=== PATIENT | male | born 1960 | race Caucasian/White ===

== ENCOUNTER 2018-08-19 21:04 | Inpatient (IN) ==
[2018-08-19] MEDS ORDERED: Lidocaine 1%/Epinephrine 1:100,000 Inj 50 ML Vial INFILTRATN ONE (21:28)
--- NOTE | 2018-08-19 21:37 | ED ---
HPI General Chief complaint: Trauma Stated complaint: Medical, TA Transfer NSB Time Seen by Provider: 08/19/18 21:22 History of Present Illness HPI narrative: This is a 57-year-old male with history of polymyalgia rheumatica , hypothyroidism, who was transferred from [facility] for evaluation by the trauma service. The patient reports that he had a skateboarding accident this afternoon. He was evaluated and found to have multiple right-sided rib fractures consistent with flail chest, small right hemopneumothorax, nondisplaced fracture of the body of the right scapula CT cervical spine revealed no acute osseous abnormality in the cervical spine. CT the brain was negative. The patient is complaining of right-sided rib cage pain which is sharp and worse with movement. He endorses slight dyspnea. He has a laceration on the left hand which is minimally painful. He is denying any headache, neck pain, numbness or tingling or weakness in extremities, abdominal pain, nausea or vomiting. He has no other complaints at this time. Related Data Home Medications Medication Instructions Recorded Confirmed levothyroxine 125 mcg PO DAILY 08/19/18 08/19/18 prednisone 10 mg PO DAILY 08/19/18 08/19/18 Allergies Allergy/AdvReac Type Severity Reaction Status Date / Time No Known Allergies Allergy Verified 08/19/18 21:08 Review of Systems ROS: all other systems reviewed are negative PMFSH Social History Social History Substance History: No History of Abuse Second Hand Smoke Exposure: No Smoking Status: Never smoker How Often Do You Have a Drink Containing Alcohol: 4 or more times a week Recent Travel in [facility] within the Last 8 Weeks: No Recent Out of Country Travel within the Last 8 Weeks: No Immunization History Tetanus Immunization: <5 Years Exam Narrative Exam Narrative: GENERAL: Well-developed well-nourished male in no acute distress SKIN: Warm and dry. There is a 2 cm laceration to the thenar eminence of the left hand. Sand is noted around the wound. There is an abrasion to the right knee. HEAD: Atraumatic. Normocephalic. EYES: Pupils equal and round. No scleral icterus. No injection or drainage. ENT: No nasal bleeding or discharge. Mucous membranes pink and moist. NECK: Trachea midline. No JVD. CARDIOVASCULAR: Regular rate and rhythm. No murmur appreciated. RESPIRATORY: No accessory muscle use. Clear to auscultation. Breath sounds equal bilaterally. GASTROINTESTINAL: Abdomen soft, non-tender, nondistended. Hepatic and splenic margins not palpable. MUSCULOSKELETAL: Skin as noted above. There is tenderness to palpation of the posterior right rib cage. There is no tenderness to palpation of the cervical midline spine. NEUROLOGICAL: Awake and alert. No obvious cranial nerve deficits. Motor grossly within normal limits. Normal speech. Procedures Laceration Laceration 1: Site: hand Side (If applicable): left Size (cm): 2 Description: linear Depth: simple, single layer Anesthetic used: lidocaine 1% and with epi Anesthesia technique:: local infiltration Amount (mL): 3 Pre-repair:: wound explored and irrigated extensively Skin layer closed with: ethilon Size (cm): 4-0 Number of sutures:: 4 Technique:: simple, interrupted Course Initial Documented Vital Signs Temperature 99.4 F 08/19/18 21:08 Pulse Rate 93 H 08/19/18 21:08 Respiratory Rate 14 08/19/18 21:08 Blood Pressure 124/78 08/19/18 21:08 Pulse Oximetry 92 L 08/19/18 21:08 Last Documented Vital Signs Temperature 97.6 F 08/20/18 08:00 Pulse Rate 59 L 08/20/18 08:00 Respiratory Rate 19 08/20/18 08:00 Blood Pressure 116/66 08/20/18 08:00 Pulse Oximetry 98 08/20/18 08:00 Medical Decision Making XIOMARA Attestation XIOMARA supervised visit: Yes Attestation: I, Dr. Traylor, have reviewed the advance practice practitioner's documentation and am in agreement, met with the patient face to face, made the diagnosis, and the medical decision making was done by me. *My assessment and Findings: This patient was sent to us as a trauma transfer from [facility]. His major injury was chest trauma with multiple rib fractures and a small hemo/pneumothorax. His oxygen saturations were a bit low on arrival. The PA informed me immediately of the patient's presence in case a chest tube was needed emergently. On my evaluation, the patient was not having any respiratory distress. The initial plan was to do an upright chest x-ray to further evaluate the hemopneumothorax. However, Dr. Mancera requested a CT of his abdomen and pelvis. A CT of his chest was added for further evaluation of the hemopneumothorax. Dr. Mancera came to the emergency department shortly after patient's arrival to evaluate the patient himself. Please see Sean Valerio PA-C's note for a more detailed H&P, final diagnosis and disposition MDM Narrative Medical decision making narrative: The patient was placed on ECG monitoring pulse oximetry. An IV was established, lab work was obtained and sent, x-ray of the left hand and chest were obtained. The laceration on the left hand was repaired, he verbally consented. I discussed with Dr. Andersen the accepting trauma surgeon who would like CT imaging of the thorax and abdomen and pelvis. Medical Screen Exam Complete: Yes Emergency Medical Condition: Yes Differential Diagnosis Differential Diagnosis: Rib fracture versus pneumothorax versus hemothorax versus scapular fracture Lab Data Result diagrams: 08/20/18 05:46 08/20/18 05:46 Lab Results 08/19/18 08/19/18 08/19/18 Range/Units 21:33 21:33 21:33 WBC 11.3 H (4.0-11.0) th/mm3 RBC 4.55 (4.50-5.90) mil/mm3 Hgb 13.6 (13.0-17.0) gm/dL Hct 39.5 (39.0-51.0) % MCV 86.9 (80.0-100.0) fL MCH 29.9 (27.0-34.0) pg MCHC 34.4 (32.0-36.0) % RDW 13.3 (11.6-17.2) % Plt Count 261 (150-450) th/mm3 MPV 7.4 (7.0-11.0) fL Neut % (Auto) 75.3 H (16.0-70.0) % Lymph % (Auto) 13.7 (9.0-44.0) % Walker % (Auto) 10.0 H (0.0-8.0) % Eos % (Auto) 0.8 (0.0-4.0) % Baso % (Auto) 0.2 (0.0-2.0) % Neut # (Auto) 8.5 H (1.8-7.7) th/mm3 Lymph # (Auto) 1.5 (1.0-4.8) th/mm3 Walker # (Auto) 1.1 H (0.0-0.9) th/mm3 Eos # (Auto) 0.1 (0.0-0.4) th/mm3 Baso # (Auto) 0.0 (0.0-0.2) th/mm3 WBC Differential . Differential Comment Auto diff final PT 10.2 (9.8-11.6) sec INR 1.0 Ratio APTT 27.5 (23.4-31.7) sec Sodium 139 (136-145) meq/L Potassium 3.7 (3.5-5.1) meq/L Chloride 105 (98-107) meq/L Carbon Dioxide 27.9 (21.0-32.0) meq/L Anion Gap 6 (5-15) meq/L BUN 17 (7-18) mg/dL Creatinine 1.07 (0.60-1.30) mg/dL Estimated GFR 71 L (>89) mL/min Random Glucose 112 H (74-106) mg/dL Calcium 8.0 L (8.5-10.1) mg/dL Nasal Screen MRSA (PCR) (Negative) Blood Type Blood Type Recheck Antibody Screen 08/19/18 08/19/18 08/20/18 Range/Units 22:10 23:51 05:46 WBC 9.4 (4.0-11.0) th/mm3 RBC 4.23 L (4.50-5.90) mil/mm3 Hgb 12.7 L (13.0-17.0) gm/dL Hct 37.9 L (39.0-51.0) % MCV 89.6 (80.0-100.0) fL MCH 30.1 (27.0-34.0) pg MCHC 33.6 (32.0-36.0) % RDW 13.6 (11.6-17.2) % Plt Count 237 (150-450) th/mm3 MPV 7.4 (7.0-11.0) fL Neut % (Auto) 66.8 (16.0-70.0) % Lymph % (Auto) 18.9 (9.0-44.0) % Walker % (Auto) 11.9 H (0.0-8.0) % Eos % (Auto) 1.6 (0.0-4.0) % Baso % (Auto) 0.8 (0.0-2.0) % Neut # (Auto) 6.3 (1.8-7.7) th/mm3 Lymph # (Auto) 1.8 (1.0-4.8) th/mm3 Walker # (Auto) 1.1 H (0.0-0.9) th/mm3 Eos # (Auto) 0.2 (0.0-0.4) th/mm3 Baso # (Auto) 0.1 (0.0-0.2) th/mm3 WBC Differential . Differential Comment Auto diff final PT (9.8-11.6) sec INR Ratio APTT (23.4-31.7) sec Sodium (136-145) meq/L Potassium (3.5-5.1) meq/L Chloride (98-107) meq/L Carbon Dioxide (21.0-32.0) meq/L Anion Gap (5-15) meq/L BUN (7-18) mg/dL Creatinine (0.60-1.30) mg/dL Estimated GFR (>89) mL/min Random Glucose (74-106) mg/dL Calcium (8.5-10.1) mg/dL Nasal Screen MRSA (PCR) Not detected (Negative) Blood Type O Positive Blood Type Recheck Required Antibody Screen Negative 08/20/18 Range/Units 05:46 WBC (4.0-11.0) th/mm3 RBC (4.50-5.90) mil/mm3 Hgb (13.0-17.0) gm/dL Hct (39.0-51.0) % MCV (80.0-100.0) fL MCH (27.0-34.0) pg MCHC (32.0-36.0) % RDW (11.6-17.2) % Plt Count (150-450) th/mm3 MPV (7.0-11.0) fL Neut % (Auto) (16.0-70.0) % Lymph % (Auto) (9.0-44.0) % Walker % (Auto) (0.0-8.0) % Eos % (Auto) (0.0-4.0) % Baso % (Auto) (0.0-2.0) % Neut # (Auto) (1.8-7.7) th/mm3 Lymph # (Auto) (1.0-4.8) th/mm3 Walker # (Auto) (0.0-0.9) th/mm3 Eos # (Auto) (0.0-0.4) th/mm3 Baso # (Auto) (0.0-0.2) th/mm3 WBC Differential Differential Comment PT (9.8-11.6) sec INR Ratio APTT (23.4-31.7) sec Sodium 140 (136-145) meq/L Potassium 4.5 D (3.5-5.1) meq/L Chloride 106 (98-107) meq/L Carbon Dioxide 27.1 (21.0-32.0) meq/L Anion Gap 7 (5-15) meq/L BUN 18 (7-18) mg/dL Creatinine 0.93 (0.60-1.30) mg/dL Estimated GFR 84 L (>89) mL/min Random Glucose 104 (74-106) mg/dL Calcium 7.6 L (8.5-10.1) mg/dL Nasal Screen MRSA (PCR) (Negative) Blood Type Blood Type Recheck Antibody Screen Imaging Data Radiologist's impression: Chest X-Ray 08/19/18 21:19 CONCLUSION: 1. Multiple acute right-sided rib fractures. 2. Questionable small right apical pneumothorax. 3. Scattered parenchymal opacities likely relating to atelectasis. Hand X-Ray 08/19/18 21:19 CONCLUSION: Negative examination Abdomen/Pelvis CT 08/19/18 21:31 CONCLUSION: 1. No evidence of acute visceral injury. 2. Mild hepatic steatosis. 3. Visualization of the known right rib fractures, small pneumothorax, consolidation in the right lower lobe and small effusion. Please see chest CT report for further details. Chest CT 08/19/18 21:31 CONCLUSION: 1. Small right anterior pneumothorax. 2. Consolidation in the right posterior lung base and small right effusion. 3. Multiple right rib fractures involving the lateral right fourth through eighth ribs and posterior third through sixth ribs. Chest X-Ray 08/20/18 22:31 CONCLUSION: No significant interval change. There is no pneumothorax Discharge Plan Discharge Disposition Patient Disposition: ED Admit(ED Internal Use Only) Discharge Condition Condition: Stable Discharge Order Discharge Orders: Orthopedic Clear for Discharge (Routine); Ordered 08/20/18 Ordered By: Morgan Merritt ED Use Only Admit Order (Routine); Ordered 08/19/18 Ordered By: Sean Valerio Discharge Details Diagnosis: Multiple rib fractures, Fracture closed, scapula, Hemopneumothorax Physicians Team ED Provider: Jill Traylor ED Midlevel Provider: Sean Valerio Primary Care Provider: UNKNOWN, Attending Provider: Kenya Mancera Other Providers: Denis Clements ; Dick Millard ; Christ Alvarado ; [employer] ; Brett Woodson ; Luz Marina Rodriguez ; Omero Rivera ; Kenya Mancera ; Gautam Waters ; Rocky Culver Status ED Status: Left Department Discharge Information Discharge Date/Time: 08/19/18 23:35
[2018-08-19] MEDS ORDERED: Sod Chloride 0.9% Inj 1,000 ML IV.SIG SCH (21:45)
--- NOTE | 2018-08-19 21:47 | XR ---
EXAM DATE: 08/19/2018 9:42 PM EST AGE/SEX: 57 years / Male INDICATIONS: Left hand, 1st MCPJ palm laceration. CLINICAL DATA: This is the patient's initial encounter. Patient reports that signs and symptoms have been present for 1 day and indicates a pain score of 10/10. MEDICAL/SURGICAL HISTORY: None. None. COMPARISON: No prior exams available for comparison. FINDINGS: Bony structures are intact and in normal alignment. Osseous density is normal. Soft tissues are unre markable. No radiopaque foreign bodies seen. CONCLUSION: Negative examination Electronically signed by: Abdon Holm MD Board Certified Radiologist 08/19/2018 9:45 PM EST
--- NOTE | 2018-08-19 21:48 | XR ---
EXAM DATE: 08/19/2018 9:41 PM EST AGE/SEX: 57 years / Male INDICATIONS: Pneumothorax after falling off a skateboard. CLINICAL DATA: This is the patient's initial encounter. Patient reports that signs and symptoms have been present for 1 day and indicates a pain score of 10/10. MEDICAL/SURGICAL HISTORY: None. None. COMPARISON: No prior exams available for comparison. FINDINGS: A single AP view of the chest demonstrates scattered parenchymal opacities throughout both lungs. No effusions. Heart is normal in size. Multiple acute right-sided rib fractures seen. A questionable sma ll apical pneumothorax. No effusion. The heart is normal in size. CONCLUSION: 1. Multiple acute right-sided rib fractures. 2. Questionable small right apical pneumothorax. 3. Scattered parenchymal opacities likely relating to atelectasis. Electronically signed by: Abdon Holm MD Board Certified Radiologist 08/19/2018 9:47 PM EST
[2018-08-19 21:54] LABS: Baso % (Auto) 0.2 % (0.0-2.0); Eos # (Auto) 0.1 th/mm3 (0.0-0.4); Eos % (Auto) 0.8 % (0.0-4.0); Hematocrit 39.5 % (39.0-51.0); Hemoglobin 13.6 gm/dL (13.0-17.0); Lymph # (Auto) 1.5 th/mm3 (1.0-4.8); Lymph % (Auto) 13.7 % (9.0-44.0); Mean Corpuscular HGB Conc 34.4 % (32.0-36.0); Mean Corpuscular Hemoglobin 29.9 pg (27.0-34.0); Mean Corpuscular Volume 86.9 fL (80.0-100.0); Mean Platelet Volume 7.4 fL (7.0-11.0); Mono # (Auto) 1.1 th/mm3 (0.0-0.9); Neut # (Auto) 8.5 th/mm3 (1.8-7.7); Neut % (Auto) 75.3 % (16.0-70.0); Platelet Count 261 th/mm3 (150-450); Red Blood Count 4.55 mil/mm3 (4.50-5.90); Red Cell Distribution Width 13.3 % (11.6-17.2); White Blood Count 11.3 th/mm3 (4.0-11.0)
[2018-08-19 22:11] LABS: Activated Partial Thrombo Time 27.5 sec (23.4-31.7); Prothrombin Time 10.2 sec (9.8-11.6)
[2018-08-19 22:13] LABS: Carbon Dioxide 27.9 meq/L (21.0-32.0); Potassium 3.7 meq/L (3.5-5.1)
[2018-08-19] MEDS ORDERED: Naloxone Inj 0.4 MG/ML Vial IV.PUSH PRN (22:34)
[2018-08-19] MEDS: HYDROmorphone PF Inj 2 MG/ML Vial IV.PUSH PRN (22:38)
[2018-08-19] MEDS: Ketorolac Inj 30 MG/ML (IVP) Vial IV.PUSH SCH (22:39)
--- NOTE | 2018-08-19 22:47 | P.HPCC ---
History of Present Illness Primary Care Physician: UNKNOWN History of Present Illness: 57 y.o male fell from skateboard today.Transfer transfer from outside institution. Patient had a CT scan of the head C-spine which were negative. CT scan of the chest shows multiple right-sided rib fractures with a small hemopneumothorax. He is hemodynamically normal complaints of right-sided chest pain or right-sided shoulder pain, he is on 4 L oxygen satting in the mid in the mid 90s. He had a small open wound of the right hand which was sutured by the ER physician assistant credit manager. 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 - Medical History Medical History: Medical History (Last Updated 08/19/18 @ 21:32 by Dayanara Pearson) Hypothyroidism Polymyalgia rheumatica - Surgical History Surgical History: Surgical History (Last Updated 08/19/18 @ 21:15 by Dayanara Pearson) History of tonsillectomy Hx of adenoidectomy - Tobacco History Second Hand Smoke Exposure: No Tobacco Use In Past 30 Days: No Smoking Status: Never smoker - Alcohol History How Often Do You Have a Drink Containing Alcohol: 4 or more times a week - Substance Use History Substance History: No History of Abuse - Travel History Recent Travel in the [place] Within the Last 8 Weeks: No Recent Travel Out of the Country Within the Last 8 Weeks: No - Immunization History Tetanus Immunization: <5 Years Tetanus Immunization Year if Known: 2019 Medications and Allergies Active Medications: Active Medications Chlorhexidine Gluconate (Chlorhexidine 2% Cloth) 3 pack TOPICAL DAILY@0400 ANT Stop: 08/25/18 03:59 Chlorhexidine Gluconate (Chlorhexidine 2% Cloth) 3 pack TOPICAL DAILY@0400 PRN PRN Reason: Extra cloth needed Stop: 08/25/18 03:59 Hydromorphone HCl (Dilaudid Pf Inj) 1 mg IV.PUSH Q4H PRN PRN Reason: BREAKTHROUGH PAIN Last Admin: 08/19/18 22:38 Dose: 1 mg Sodium Chloride (Ns Inj) 1,000 mls @ 1,000 mls/hr IV.SIG BOLUS ANT Stop: 08/19/18 22:44 Last Admin: 08/19/18 22:02 Dose: 1,000 mls/hr Lactated Ringer's (Lr 1000 Ml Inj) 1,000 mls @ 100 mls/hr IV.CONT .Q10H ANT Acetaminophen (Ofirmev Inj) 1,000 mg in 100 mls @ 400 mls/hr IV.SIG Q6H ANT Stop: 08/20/18 16:50 Hydromorphone/Sodium Chloride (Dilaudid Social Worker Delinquency Prevention Inj) 6 mg in 30 mls @ 0 mls/hr CUSTOM STOCK MAKER UNSCH PRN PRN Reason: prn pain Ketorolac Tromethamine (Toradol Inj) 30 mg IV.PUSH Q6H ANT Stop: 08/21/18 22:30 Last Admin: 08/19/18 22:39 Dose: 30 mg Methocarbamol (Robaxin) 750 mg PO Q8HR ANT Naloxone HCl (Narcan Inj) 0.4 mg IV.PUSH PRN PRN PRN Reason: SEE LABEL COMMENTS Ondansetron HCl (Zofran Inj) 4 mg IV.PUSH Q6H PRN PRN Reason: NAUSEA OR VOMITING Prednisone (Deltasone) 10 mg PO DAILY ANT Sodium Chloride (Ns Flush) 2 ml IV.FLUSH UNSCH PRN PRN Reason: FLUSH AFTER USING IV ACCESS Allergies Allergy/AdvReac Type Severity Reaction Status Date / Time No Known Allergies Allergy Verified 08/19/18 21:08 Home Medications Medication Instructions Recorded Confirmed Type levothyroxine 125 mcg PO DAILY 08/19/18 08/19/18 History prednisone 10 mg PO DAILY 08/19/18 08/19/18 History Results - Labs CBC & Chem 7: 08/19/18 21:33 08/19/18 21:33 Labs: Short CBC 08/19/18 Range/Units 21:33 WBC 11.3 H (4.0-11.0) th/mm3 Hgb 13.6 (13.0-17.0) gm/dL Hct 39.5 (39.0-51.0) % Plt Count 261 (150-450) th/mm3 BMP 08/19/18 21:33 Sodium 139 Potassium 3.7 Chloride 105 Carbon Dioxide 27.9 BUN 17 Creatinine 1.07 Calcium 8.0 L - Imaging Impressions Chest X-Ray 08/19/18 21:19 CONCLUSION: 1. Multiple acute right-sided rib fractures. 2. Questionable small right apical pneumothorax. 3. Scattered parenchymal opacities likely relating to atelectasis. Hand X-Ray 08/19/18 21:19 CONCLUSION: Negative examination Exam Vital signs: Vital Signs 08/19/18 21:08 08/19/18 22:00 Temperature 99.4 F Pulse Rate 93 H 97 H Respiratory Rate 14 18 Blood Pressure 124/78 124/78 Pulse Oximetry 92 L 95 Intake & Output 08/19/18 08/19/18 08/20/18 06:59 18:59 06:59 Weight 90.718 kg - Constitutional no acute distress, average body habitus, cooperative - Routine HEENT Exam Head: Present: normocephalic Eye: Present: EOMI, PERRL ENT: Present: mucous membranes dry, oropharynx clear - Routine Neck Exam Present: supple, full ROM, trachea midline - Routine Respiratory Exam Present: CTA bilaterally - Routine Cardiovascular Exam Present: RRR - Routine Abdominal Exam Present: soft - Routine Extremities Exam Present: full ROM, pulses intact, normal capillary refill - Routine Neurological Exam Present: alert, oriented X3, moving all extremities Caprini VTE Risk Assessment Caprini VTE Risk Assessment: Moderate/High Risk (score >= 2) Caprini Risk Assessment Model: Point Value = 1 Point Value = 2 Point Value = 3 Point Value = 5 Age 41-60 Minor surgery BMI > 25 kg/m2 Swollen legs Varicose veins or History of unexplained or recurrent spontaneous Oral contraceptives or hormone replacement Sepsis (< 1 month) Serious lung disease, including pneumonia (< 1 month) Abnormal pulmonary function Acute myocardial infarction Congestive heart failure (< 1 month) History of inflammatory bowel disease Medical patient at bed rest Age 61-74 Arthroscopic surgery Major open surgery (> 45 min) Laparoscopic surgery (> 45 min) Malignancy Confined to bed (> 72 hours) Immobilizing plaster cast Central venous access Age >= 75 History of VTE Family history of VTE Factor V Leiden Prothrombin [id number] Lupus anticoagulant Anticardiolipin antibodies Elevated serum homocysteine Heparin-induced thrombocytopenia Other congenital or acquired thrombophilia Stroke (< 1 month) Elective arthroplasty Hip, pelvis, or leg fracture Acute spinal cord injury (< 1 month) Prophylaxis Regimen: Total Risk Factor Score Risk Level Prophylaxis Regimen 0-1 Low Early ambulation 2 Moderate Order ONE of the following: *Sequential Compression Device (SCD) *Heparin 5000 units SQ BID 3-4 Higher Order ONE of the following medications: *Heparin 5000 units SQ TID *Enoxaparin/Lovenox 40 mg SQ daily (WT < 150 kg, CrCl > 30 mL/min) *Enoxaparin/Lovenox 30 mg SQ daily (WT < 150 kg, CrCl > 10-29 mL/min) *Enoxaparin/Lovenox 30 mg SQ BID (WT < 150 kg, CrCl > 30 mL/min) AND/OR *Sequential Compression Device (SCD) 5 or more Highest Order ONE of the following medications: *Heparin 5000 units SQ TID (Preferred with Epidurals) *Enoxaparin/Lovenox 40 mg SQ daily (WT < 150 kg, CrCl > 30 mL/min) *Enoxaparin/Lovenox 30 mg SQ daily (WT < 150 kg, CrCl > 10-29 mL/min) *Enoxaparin/Lovenox 30 mg SQ BID (WT < 150 kg, CrCl > 30 mL/min) AND *Sequential Compression Device (SCD) Assessment and Plan - Assessment and Plan Plan: Chest trauma right side with multiple rib fractures Scapula fracture Ad[facility] to [facility] repeat CT scan of the chest -I will order a CT scan of the abdomen and pelvis which has not been performed in the transferring institution Pain control with CUSTOM STOCK MAKER I reviewed patient's CT scan from transferring institution his pneumothorax is fairly small-this is been increasing size on the repeat CT in [place] I will proceed with the chest tube thoracostomy Repeat chest x-ray in the morning
--- NOTE | 2018-08-19 23:15 | CT ---
EXAM DATE: 08/19/2018 11:03 PM EST AGE/SEX: 57 years / Male INDICATIONS: Trauma. Skateboard accident. Patient has severe right-sided chest pain with multiple kn own fractures and abnormal chest plain film examination demonstrating questionable small right apical pneumothorax. CLINICAL DATA: This is the patient's initial encounter. Patient reports that signs and symptoms have been present for 1 day and indicates a pain score of 10/10. MEDICAL/SURGICAL HISTORY: None. None. RADIATION DOSE: 6.54 CTDI (mGy) ; Combined studies COMPARISON: [facility], CHEST 1V SINGLE AP, 08/19/2018. . TECHNIQUE: Multiple contiguous axial images were obtained through the chest during bolus infusion of 95 ml Omnipaque 350 (iohexol) nonionic water-soluble contrast as a cumulative dose for multiple exa ms. Images were obtained in suspended respiration using multiple row detector helical technique. U sing automated exposure control and adjustment of the mA and/or kV according to patient size, radiati on dose was kept as low as reasonably achievable to obtain optimal diagnostic quality images. DICOM format image data is available electronically for review and comparison. FINDINGS: Lungs: There is a small right anterior pneumothorax extending across the lung base measuring up to a pproximately 1 cm in greatest AP diameter. There is consolidation in the right lower lobe with air br onchograms. There is mild atelectasis or consolidation posterior left lung. Mediastinum: There is good visualization of the great vessels of the middle mediastinum. No evidenc e of mediastinal or hilar adenopathy/mass. Pleurae: There is a small right pleural effusion. Axillae: Unremarkable. Bony Structures: There are fractures of the right lateral fourth through eighth ribs and posterior t hird through sixth ribs. Miscellaneous: The examination was extended to include the upper abdomen, and both adrenal glands ar e normal in size and configuration. CONCLUSION: 1. Small right anterior pneumothorax. 2. Consolidation in the right posterior lung base and small right effusion. 3. Multiple right rib fractures involving the lateral right fourth through eighth ribs and posterior third through sixth ribs. Electronically signed by: Alonzo Alvarez MD Board Certified Radiologist 08/19/2018 11:13 PM EST
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
[2018-08-20] MEDS: Methocarbamol 500 MG Tablet PO SCH ×4 (00:16→21:07)
[2018-08-20] MEDS: HYDROmorphone PCA Inj 6 MG/30 ML PCA.VIAL PCA PRN ×2 (00:31→18:47)
[2018-08-20] MEDS ORDERED: Chlorhexidine Gluconate 2% 1 Pack (2 Cloths) TOPICAL PRN (04:00)
[2018-08-20] MEDS: Chlorhexidine Gluconate 2% 1 Pack (2 Cloths) TOPICAL SCH (04:47)
[2018-08-20] MEDS: Ketorolac Inj 30 MG/ML (IVP) Vial IV.PUSH SCH ×4 (04:47→22:48)
[2018-08-20 06:12] LABS: Baso # (Auto) 0.1 th/mm3 (0.0-0.2); Baso % (Auto) 0.8 % (0.0-2.0); Eos # (Auto) 0.2 th/mm3 (0.0-0.4); Eos % (Auto) 1.6 % (0.0-4.0); Hematocrit 37.9 % (39.0-51.0); Hemoglobin 12.7 gm/dL (13.0-17.0); Lymph # (Auto) 1.8 th/mm3 (1.0-4.8); Lymph % (Auto) 18.9 % (9.0-44.0); Mean Corpuscular HGB Conc 33.6 % (32.0-36.0); Mean Corpuscular Hemoglobin 30.1 pg (27.0-34.0); Mean Corpuscular Volume 89.6 fL (80.0-100.0); Mean Platelet Volume 7.4 fL (7.0-11.0); Mono # (Auto) 1.1 th/mm3 (0.0-0.9); Mono % (Auto) 11.9 % (0.0-8.0); Neut # (Auto) 6.3 th/mm3 (1.8-7.7); Neut % (Auto) 66.8 % (16.0-70.0); Platelet Count 237 th/mm3 (150-450); Red Blood Count 4.23 mil/mm3 (4.50-5.90); Red Cell Distribution Width 13.6 % (11.6-17.2); White Blood Count 9.4 th/mm3 (4.0-11.0)
[2018-08-20 06:34] LABS: Calcium 7.6 mg/dL (8.5-10.1); Carbon Dioxide 27.1 meq/L (21.0-32.0); Potassium 4.5 meq/L (3.5-5.1)
--- NOTE | 2018-08-20 07:05 | XR ---
EXAM DATE: 08/20/2018 6:50 AM EST AGE/SEX: 57 years / Male INDICATIONS: Follow up trauma. Pain right chest and ribs. CLINICAL DATA: This is the patient's subsequent encounter. Patient reports that signs and symptoms h ave been present for 1 day and indicates a pain score of 9/10. MEDICAL/SURGICAL HISTORY: . right apical pneumothorax, multiple right rib fractures None. COMPARISON: [facility] – [place], CHEST 1V SINGLE AP, 08/19/2018. . FINDINGS: A single AP view of the chest demonstrates the lungs to be symmetrically aerated without evidence of mass, infiltrate or effusion. The cardiomediastinal contours are unremarkable. Fractures of the righ t upper ribs are again noted. I do not see a right apical pneumothorax is more CONCLUSION: No significant interval change. There is no pneumothorax Electronically signed by: Thomas Ro MD Board Certified Radiologist 08/20/2018 7:04 AM EST
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
[2018-08-20] MEDS: predniSONE 10 MG Tablet PO SCH (09:28)
[2018-08-20] MEDS: Famotidine 20 MG Tablet PO SCH ×2 (09:28→21:08)
[2018-08-20] MEDS: Senna/Docusate Sodium 8.6/50 MG Tablet PO SCH ×2 (09:30→21:08)
[2018-08-20] MEDS: Lidocaine 5% Patch T-DERMAL SCH (09:33)
[2018-08-20] MEDS: Enoxaparin Inj 40 MG/0.4 ML Syringe SQ SCH (11:43)
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
[2018-08-20] MEDS: HYDROmorphone PF Inj 2 MG/ML Vial IV.PUSH PRN (18:37)
[2018-08-21] MEDS: Chlorhexidine Gluconate 2% 1 Pack (2 Cloths) TOPICAL SCH (05:10)
[2018-08-21] MEDS: Levothyroxine 125 MCG Tablet PO SCH (05:11)
[2018-08-21] MEDS: Ketorolac Inj 30 MG/ML (IVP) Vial IV.PUSH SCH ×4 (05:11→21:30)
[2018-08-21 05:26] LABS: Baso % (Auto) 0.5 % (0.0-2.0); Eos # (Auto) 0.4 th/mm3 (0.0-0.4); Eos % (Auto) 4.2 % (0.0-4.0); Hematocrit 35.2 % (39.0-51.0); Hemoglobin 12.1 gm/dL (13.0-17.0); Lymph % (Auto) 24.4 % (9.0-44.0); Mean Corpuscular HGB Conc 34.5 % (32.0-36.0); Mean Corpuscular Hemoglobin 30.8 pg (27.0-34.0); Mean Corpuscular Volume 89.3 fL (80.0-100.0); Mean Platelet Volume 7.7 fL (7.0-11.0); Mono # (Auto) 0.9 th/mm3 (0.0-0.9); Mono % (Auto) 10.9 % (0.0-8.0); Platelet Count 213 th/mm3 (150-450); Red Blood Count 3.95 mil/mm3 (4.50-5.90); Red Cell Distribution Width 13.4 % (11.6-17.2); White Blood Count 8.4 th/mm3 (4.0-11.0)
[2018-08-21 05:46] LABS: Albumin 3.3 g/dL (3.4-5.0); Anion Gap 6 meq/L (5-15); Aspartate Aminotransferase 53 U/L (15-37); Blood Urea Nitrogen 17 mg/dL (7-18); Calcium 7.7 mg/dL (8.5-10.1); Carbon Dioxide 29.1 meq/L (21.0-32.0); Chloride 103 meq/L (98-107); Glomerular Filtration Rate 83 mL/min (>89); Glucose,Random 111 mg/dL (74-106); Potassium 4.1 meq/L (3.5-5.1); Sodium 138 meq/L (136-145)
[2018-08-21 05:48] LABS: Alanine Aminotransferase 65 U/L (12-78)
[2018-08-21 05:49] LABS: Alkaline Phosphatase 56 U/L (45-117); Total Protein 6.4 g/dL (6.4-8.2)
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
[2018-08-21] MEDS: Methocarbamol 500 MG Tablet PO SCH ×3 (05:54→21:16)
[2018-08-21] MEDS: HYDROmorphone PCA Inj 6 MG/30 ML PCA.VIAL PCA PRN (05:55)
[2018-08-21] MEDS ORDERED: HYDROmorphone PF Inj 2 MG/ML Vial IV.PUSH PRN (07:25)
[2018-08-21] MEDS: Lidocaine 5% Patch T-DERMAL SCH (08:54)
[2018-08-21] MEDS: predniSONE 10 MG Tablet PO SCH (08:55)
[2018-08-21] MEDS: Famotidine 20 MG Tablet PO SCH ×2 (08:55→21:17)
[2018-08-21] MEDS: oxyCODONE/Acetaminophen 10/325 Tablet PO PRN ×2 (08:55→13:24)
[2018-08-21] MEDS: Senna/Docusate Sodium 8.6/50 MG Tablet PO SCH ×2 (08:55→21:21)
[2018-08-21] MEDS: Enoxaparin Inj 40 MG/0.4 ML Syringe SQ SCH (08:56)
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
[2018-08-22] MEDS: Levothyroxine 125 MCG Tablet PO SCH (05:01)
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
[2018-08-22] MEDS: Methocarbamol 500 MG Tablet PO SCH ×3 (05:42→22:11)
[2018-08-22] MEDS: predniSONE 10 MG Tablet PO SCH (10:19)
[2018-08-22] MEDS: Lidocaine 5% Patch T-DERMAL SCH (10:19)
[2018-08-22] MEDS: Enoxaparin Inj 40 MG/0.4 ML Syringe SQ SCH (10:20)
[2018-08-22] MEDS: Senna/Docusate Sodium 8.6/50 MG Tablet PO SCH ×2 (10:21→20:04)
[2018-08-22] MEDS: oxyCODONE/Acetaminophen 10/325 Tablet PO PRN ×3 (10:21→20:04)
[2018-08-22] MEDS: Famotidine 20 MG Tablet PO SCH ×2 (10:21→20:04)
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
[2018-08-23] MEDS: oxyCODONE/Acetaminophen 10/325 Tablet PO PRN ×3 (01:19→09:23)
[2018-08-23] MEDS: Methocarbamol 500 MG Tablet PO SCH (05:08)
[2018-08-23] MEDS: Levothyroxine 125 MCG Tablet PO SCH (05:08)
--- NOTE | 2018-08-23 06:06 | XR ---
EXAM DATE: 08/23/2018 5:55 AM EST AGE/SEX: 57 years / Male INDICATIONS: Short of breath, chest and rib pain. CLINICAL DATA: This is the patient's subsequent encounter. Patient reports that signs and symptoms h ave been present for 4 - 6 days and indicates a pain score of 5/10. MEDICAL/SURGICAL HISTORY: . right apical pneumothorax, rib and scapula fractures None. COMPARISON: [facility] – [place], CHEST 1V SINGLE AP, 08/22/2018. . FINDINGS: A single AP view of the chest demonstrates a better inspiratory effort on the current study. A tiny l oculated right effusion seen. A small apical pneumothorax is stable. A small area of consolidation in volving the medial right lung base. Left lung is clear. Heart is normal in size. Bony structures are unremarkable. CONCLUSION: 1. Stable tiny right apical pneumothorax. 2. Stable tiny right pleural effusion. This appears loculated. 3. Stable consolidation involving the right medial lung base. Electronically signed by: Abdon Holm MD Board Certified Radiologist 08/23/2018 6:05 AM EST
[2018-08-23 06:31] VITALS: O2SAT 94
[2018-08-23] MEDS: Senna/Docusate Sodium 8.6/50 MG Tablet PO SCH (09:23)
[2018-08-23] MEDS: Famotidine 20 MG Tablet PO SCH (09:23)
[2018-08-23] MEDS: Lidocaine 5% Patch T-DERMAL SCH (09:24)
[2018-08-23] MEDS: predniSONE 10 MG Tablet PO SCH (09:24)
[2018-08-23] MEDS: Enoxaparin Inj 40 MG/0.4 ML Syringe SQ SCH (09:24)
[2018-08-23 10:27] VITALS: BP 141/82; PULSE 71; RESP 16; TEMP 98.4
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
== END 2018-08-23 11:46 | disposition home or self-care (01) | DRG 199 ==
LOC: NEPE 21:04 → NEDA 22:29 → N03 23:28 → N06 08-20 17:56
PROVIDERS: ADMIT Surgery Trauma Surgery; ATTEND Surgery Trauma Surgery
CPT/HCPCS: 12001; 71010; 71045; 71260; 73130; 74177; 80048; 80053; 85025; 85610; 85730; 86850; 86900; 86901; 87641; 94150; 97161; 97167; 99285; J0131; J1170; J1650; J1885; J7030; J7120; J7506; J7512; Q9967